=== PATIENT | female | born 1990 | race Caucasian/White ===

== ENCOUNTER 2019-11-24 16:04 | Emergency (ER) | payer OTHER ==
[2019-11-24 16:40] VITALS: BP 111/89; PULSE 64
--- NOTE | 2019-11-24 17:06 | EDM.PDOC ---
ED HPI GENERAL MEDICAL PROBLEM - General Chief Complaint: ENT Problem Stated Complaint: "muffled hearing" Time Seen by Provider: 11/24/19 16:50 Source of Information: Reports: Patient History Limitations: Reports: No Limitations - History of Present Illness INITIAL COMMENTS - FREE TEXT/NARRATIVE: Patient is a 29-year-old female who presents to the emergency department with complaints of bilateral "muffled hearing". Patient states the symptoms were initially in her right ear upon waking today. She now has muffled hearing in her bilateral ears. She denies any associated pain. She has no headache. She denies any sinus or nasal congestion. She is had no neck pain, dizziness, blurred vision, eye pain, nausea, or vomiting. She denies any fever or chills. Patient was seen at the [facility] prior to coming here. She was sent here to have an MRI done with the concern of a vertebral artery dissection. Patient states that she was adjusted by the chiropractor on Friday, but that she has been fine since then. She did also have appointment with a chiropractor for an adjustment today, however the symptoms were present prior to going to the chiropractor. - Related Data Allergies Allergy/AdvReac Type Severity Reaction Status Date / Time No Known Allergies Allergy Verified 03/07/15 19:40 Home Meds: Home Meds Fluticasone Propionate [Flonase] 16 gm .XX BID 5 Days #1 bottle 11/24/19 [Rx] Past Medical History - Past Health History Medical/Surgical History: Denies Medical/Surgical History Social & Family History - Tobacco Use Smoking Status *Q: Never Smoker Second Hand Smoke Exposure: No - Caffeine Use Caffeine Use: Reports: None ED ROS ENT - Review of Systems Review Of Systems: See Below Constitutional: Reports: No Symptoms. Denies: Fever, Chills HEENT: Reports: No Symptoms, Other ("Muffled hearing "). Denies: Ear Discharge , Ear Pain, Sinus Problem, Throat Pain Respiratory: Reports: No Symptoms. Denies: Shortness of Breath, Cough Cardiovascular: Reports: No Symptoms. Denies: Chest Pain, Palpitations Endocrine: Reports: No Symptoms GI/Abdominal: Reports: No Symptoms. Denies: Nausea, Vomiting : Reports: No Symptoms Musculoskeletal: Reports: No Symptoms. Denies: Neck Pain, Back Pain Skin: Reports: No Symptoms Neurological: Denies: Confusion, Dizziness, Headache, Numbness, Paresthesia, Syncope, Tingling, Trouble Speaking, Difficulty Walking, Weakness Psychiatric: Reports: No Symptoms Hematologic/Lymphatic: Reports: No Symptoms Immunologic: Reports: No Symptoms ED EXAM, ENT - Physical Exam Exam: See Below Exam Limited By: No Limitations General Appearance: Alert, WD/WN, No Apparent Distress Eye Exam: Bilateral Eye: Normal Inspection, PERRL, Other (No nystagmus, no vision changes) Ears: Normal External Exam, Normal Canal, TM Fluid (Bilateral). No: TM Bulging , TM Dullness, TM Erythema, TM Obscured by Cerumen Neck: Normal Inspection, Supple, Non-Tender, Full Range of Motion, Other ( Bilateral tonsillar lymphadenopathy. Not tender to palpation but distinctly enlarged. ) Respiratory/Chest: No Respiratory Distress, Lungs Clear, Normal Breath Sounds, No Accessory Muscle Use, Chest Non-Tender Cardiovascular: Normal Peripheral Pulses, Regular Rate, Rhythm, No Edema, No Gallop, No JVD, No Murmur, No Rub Extremities: Normal Inspection, Normal Range of Motion, Non-Tender, No Pedal Edema, Normal Capillary Refill Neurological: Alert, Oriented, CN II-XII Intact, Normal Cognition, Normal Gait, Normal Reflexes, No Motor/Sensory Deficits. No: Sensory/Motor Deficit Psychiatric: Normal Affect, Normal Mood Skin: Warm, Dry, Intact, Normal Color, No Rash Lymphatic: Adenopathy (Bilateral tonsillar) Course - Vital Signs Last Recorded V/S: Last Vital Signs Temp 98.4 F 11/24/19 16:36 Pulse 64 11/24/19 16:36 Resp 18 11/24/19 16:36 BP 111/89 11/24/19 16:36 Pulse Ox 100 11/24/19 16:36 - Re-Assessments/Exams Free Text/Narrative Re-Assessment/Exam: 11/24/19 17:10 On exam, patient is neurologically intact. She has not had any headache or neck pain. She does have quite large tonsillar lymph nodes, which when pointed out to her she states are not normally present. Lymph nodes are nontender. Her TMs are fairly normal, however there is fluid behind each of them. Discussed that we do not have MRI in-house for emergent procedures and that in order to get it done tonight, she would have to go to [place]. Patient declined this option stating that if anything got worse that she would return and consider going to [place], however at this time she does not want to go to [place]. My suspicion for a vertebral artery dissection is very low. With her enlarged lymph nodes and the fluid behind her TMs, I feel like eustachian tube dysfunction is a more likely cause of her symptoms. I have ordered an outpatient MRI/MRA to be done at 9:00 tomorrow morning. Discussed with patient that if anything should worsen that she should return to the emergency department immediately. In the mean time I will write her prescription for Flonase and recommend that she use that. Patient is in agreement with this plan. Discharge instructions as documented. Departure - Departure Time of Disposition: 17:16 Disposition: Home, Self-Care 01 Condition: Fair Clinical Impression: Hearing difficulty of both ears - Discharge Information *PRESCRIPTION DRUG MONITORING PROGRAM REVIEWED*: No *COPY OF PRESCRIPTION DRUG MONITORING REPORT IN PATIENT [place]AN[place]: No Prescriptions: Fluticasone Propionate [Flonase] 16 gm .XX BID 5 Days #1 bottle Referrals: Mariely Tellez [facility] [Primary Care Provider] - Forms: ED Department Discharge Additional Instructions: You were seen in the emergency department today for muffled hearing that started today. On exam, you do have some fluid behind your ears and your lymph nodes in your neck are enlarged. It is definite possibility that this fluid behind your eardrum is what is causing your symptoms. Unfortunately MRI is not available emergently in our facility. We discussed the option of going to [place] to have the MRI completed but she declined at this time. An MRI/MRA of your head and neck has been scheduled for 9 AM tomorrow. As we discussed, if your symptoms should worsen before then I would recommend that you return to the emergency department immediately. A prescription for Flonase has been sent to [facility]. Use this medication as prescribed. This will help to decrease the inflammation in your eustachian tubes and hopefully facilitate drainage of the fluid in your ears. We will notify you of the results of your MRI when they are available. Return to ER as needed. Sepsis Event Note - Evaluation Sepsis Screening Result: No Definite Risk - Focused Exam Vital Signs: Vital Signs Temp Pulse Resp BP Pulse Ox 11/24/19 16:36 98.4 F 64 18 111/89 100 Date Exam was Performed: 11/24/19 Time Exam was Performed: 20:49
== END 2019-11-24 17:33 | disposition home or self-care (01) ==
LOC: JD.ED 16:04
DX: H91.93 Unspecified hearing loss, bilateral (principal)
CPT/HCPCS: 99282

== ENCOUNTER 2021-07-06 06:14 | Emergency (ER) | payer OTHER ==
[2021-07-06 06:24] VITALS: BP 103/70; PULSE 71
--- NOTE | 2021-07-06 06:32 | EDM.PDOC ---
ED HPI GENERAL MEDICAL PROBLEM - General Chief Complaint: Lower Extremity Injury/Pain Stated Complaint: WOUND CHECK/L LEG SWELLING Time Seen by Provider: 07/06/21 06:22 - History of Present Illness INITIAL COMMENTS - FREE TEXT/NARRATIVE: 30-year-old female presents the emergency room with a left leg laceration and injury. Patient gives a history of injury to her leg on Friday of last week the . She was seen at the walk-in clinic and the laceration was glued shut. 2 days ago she went back in because the glue was wearing off and it was starting to gape open. 8 days after the injury it was sutured shut. Since that time she has developed redness and swelling around the lower leg especially around where the initial laceration was. She denies any fevers or chills no signs of systemic illness.. She is up-to-date on her tetanus. - Related Data Allergies Allergy/AdvReac Type Severity Reaction Status Date / Time No Known Allergies Allergy Verified 07/06/21 06:23 Home Meds: Home Meds Multivitamin 1 tab PO DAILY 07/06/21 [History] cephALEXin [Keflex] 500 mg PO QID #40 cap 07/06/21 [Rx] Past Medical History - Past Health History Medical/Surgical History: Denies Medical/Surgical History Social & Family History - Caffeine Use Caffeine Use: Reports: None Review of Systems - Review of Systems Review Of Systems: See Below Constitutional: Reports: No Symptoms Respiratory: Reports: No Symptoms Cardiovascular: Reports: No Symptoms ED EXAM, GENERAL - Physical Exam Exam: See Below Exam Limited By: No Limitations General Appearance: Alert, No Apparent Distress Extremities: Other (Examination of her left lower leg looks like she is developing a cellulitis limited to her lower leg anterior lateral and medial posterior aspect is spared) Course - Re-Assessments/Exams Free Text/Narrative Re-Assessment/Exam: 07/06/21 07:03 Patient has 8 simple sutures. I did remove these. The wound gaped as I would expect it to. I used some benzoin adhesive along the side of the wounds and then put 2 half-inch Steri-Strips across so the wound could still drain if needed and these were put in on a fashion not to reapproximate the tissue just to help support it. Patient started on Keflex 500 4 times daily for 10 days Departure - Departure Time of Disposition: 07:04 Disposition: Home, Self-Care 01 Clinical Impression: Cellulitis of left lower leg, Wound dehiscence - Discharge Information Referrals: Mariely Tellez NP [Primary Care Provider] - Additional Instructions: Return to the emergency room with any questions problems or worsening symptoms. Follow-up in the clinic on Friday or Friday for recheck. Keep the wound absolutely clean and dry for the next 48 to 72 hours and then you may let water briefly run over the area but then gently dab it dry absolutely no scrubbing. I put a few Steri-Strips to help stabilize the tissue if these start to peel loose take some scissors and just trim the loose section off. You have been started on cephalexin, this is an antibiotic you will take 1 4 times a day for 10 days. This was sent [place] [facility] in the [employer] [facility]. Keep your foot and leg elevated is much as you can tolerate.
[2021-07-06] MEDS ORDERED: Cephalexin 500 MG Cap PO ONE (06:56)
== END 2021-07-06 07:26 | disposition home or self-care (01) ==
LOC: JD.ED 06:14
DX: T81.30XA Disruption of wound, unspecified, initial encounter (principal); L03.116 Cellulitis of left lower limb
CPT/HCPCS: 99283; A9270